=== PATIENT | female | born 1970 | race Two or more races ===

== ENCOUNTER 2016-09-09 10:12 | Emergency (ER) | payer OTHER ==
[~2016-09-09] VITALS: Ht 157.5 cm; Wt 68.0 kg
[2016-09-09 10:45] VITALS: BP 114/74
== END 2016-09-09 11:35 | disposition home or self-care (01) ==
LOC: ER 10:22
DX: S83.92XA Sprain of unspecified site of left knee, initial encounter (principal); F14.10 Cocaine abuse, uncomplicated; X58.XXXA Exposure to other specified factors, initial encounter; Y93.89 Activity, other specified; Y99.8 Other external cause status; Y92.89 Other specified places as the place of occurrence of the external cause
CPT/HCPCS: 73564

== ENCOUNTER 2020-09-29 18:15 | Inpatient (IN) | payer OTHER ==
[~2020-09-29] VITALS: Ht 157.5 cm; Wt 72.4 kg
[2020-09-29] MEDS ORDERED: IOHEXOL 300 MG/ML 100ML BOTTLE IJ ONE (19:17)
[2020-09-29 19:39] LABS: Basophils # (auto) 0 10 ^3/uL (0-0.2); Basophils % (auto) 0.2 % (0.0-2.0); Eosinophils # (auto) 0.1 10 ^3/uL (0-0.8); Hematocrit 38.8 % (36.0-46.0); Hemoglobin 13.1 g/dL (12.2-16.2); Lymphocytes # (auto) 0.8 10 ^3/uL (0.4-5.4); Lymphocytes % (auto) 7.7 % (10.0-50.0); Mean Corpuscular Hemoglobin 29.2 pg (28.0-32.0); Mean Corpuscular Hgb Conc. 33.7 g/dL (32.0-36.0); Mean Corpuscular Volume 86.4 fL (80.0-100.0); Monocytes # (auto) 0.9 10 ^3/uL (0-1.3); Monocytes % (auto) 8.1 % (0.0-12.0); Neutrophils # (auto) 9.1 10 ^3/uL (1.6-8.6); Red Blood Cells 4.49 10^6/uL (4.0-5.20); Red Cell Distribution Width 14.1 % (11.8-14.3)
[2020-09-29] MEDS ORDERED: SODIUM CHLORIDE 0.9% 1,000 ML IVB ONE (20:00)
[2020-09-29] MEDS ORDERED: MORPHINE SULFATE INJECTION 2 MG/ML SYRG IV ONE (20:00)
[2020-09-29] MEDS ORDERED: ONDANSETRON HCL 4 MG/2 ML VIAL IV ONE (20:00)
[2020-09-29 20:06] LABS: Calcium 8.7 mg/dL (8.5-10.1); Potassium 3.5 mmol/L (3.5-5.1)
[2020-09-29 20:11] LABS: Albumin 3.4 g/dL (3.4-5.0); BUN/Creatinine Ratio 19.4; Bilirubin, Total 0.5 mg/dL (0.2-1.0); Total Protein 7.9 g/dL (6.4-8.2)
[2020-09-29 20:35] LABS: Urine Bacteria NONE SEEN /hpf (None Seen); Urine Blood 1+ /uL (Negative); Urine Hyaline Cast FEW /lpf (0 - 2); Urine Mucus FEW (None Seen); Urine Specific Gravity 1.031 (1.001-1.035); Urine WBC 9 /hpf (0 - 5)
[2020-09-29 21:09] LABS: INR 1.18 (0.9-1.15); Partial Thromboplastin Time 26.2 sec (23.0-31.2)
[2020-09-30] MEDS ORDERED: ACETAMINOPHEN 325 MG TAB PO PRN (02:30)
[2020-09-30] MEDS ORDERED: MORPHINE SULFATE INJECTION 2 MG/ML SYRG IV PRN (02:30)
[2020-09-30] MEDS ORDERED: D5W/SOD CHLO 0.9% 1,000 ML IV SCH (02:30)
[2020-09-30] MEDS ORDERED: NITROGLYCERIN 0.4 MG SL TAB SL PRN (02:30)
[2020-09-30] MEDS ORDERED: DOCUSATE SOD 100 MG CAP PO PRN (02:30)
[2020-09-30 03:14] LABS: Basophils # (auto) 0 10 ^3/uL (0-0.2); Basophils % (auto) 0.4 % (0.0-2.0); Eosinophils # (auto) 0.1 10 ^3/uL (0-0.8); Eosinophils % (auto) 0.7 % (0.0-7.0); Hematocrit 35.7 % (36.0-46.0); Hemoglobin 11.9 g/dL (12.2-16.2); Lymphocytes # (auto) 0.7 10 ^3/uL (0.4-5.4); Lymphocytes % (auto) 7.3 % (10.0-50.0); Mean Corpuscular Hemoglobin 29.1 pg (28.0-32.0); Mean Corpuscular Hgb Conc. 33.3 g/dL (32.0-36.0); Mean Corpuscular Volume 87.4 fL (80.0-100.0); Monocytes # (auto) 0.9 10 ^3/uL (0-1.3); Monocytes % (auto) 9.3 % (0.0-12.0); Neutrophils # (auto) 7.9 10 ^3/uL (1.6-8.6); Neutrophils % (auto) 82.3 % (37.0-80.0); Red Blood Cells 4.08 10^6/uL (4.0-5.20); Red Cell Distribution Width 14.2 % (11.8-14.3); White Blood Cell 9.6 10^3/uL (4.4-10.8)
[2020-09-30] MEDS: metroNIDAZOLE 500MG/100ML 100 ML IV SCH ×3 (03:16→21:59)
[2020-09-30 03:34] LABS: BUN/Creatinine Ratio 16.9; Calcium 8.7 mg/dL (8.5-10.1); Potassium 3.4 mmol/L (3.5-5.1)
[2020-09-30 03:55] LABS: Bilirubin, Total 0.5 mg/dL (0.2-1.0); Total Protein 6.8 g/dL (6.4-8.2)
[2020-09-30] MEDS: ONDANSETRON HCL 4 MG/2 ML VIAL IV PRN (07:10)
[2020-09-30] MEDS: PANTOPRAZOLE 40 MG/10 ML VIAL INJ IV SCH (08:35)
[2020-09-30] MEDS: ZINC SULFATE 220mg CAP or TAB PO SCH (08:35)
[2020-09-30] MEDS: ASCORBIC ACID 500 MG TAB PO SCH ×2 (08:36→21:59)
[2020-09-30] MEDS: MULTIPLE VITAMIN TAB PO SCH (08:36)
[2020-09-30] MEDS ORDERED: ENOXAPARIN SOD 40 MG/0.4 ML SYRINGE SC SCH (10:00)
[2020-09-30] MEDS ORDERED: POTASSIUM CHLORIDE 20 MEQ, LIDOCAINE 1% (LOCAL ANESTH.) 2 ML in SODIUM CHL 0.9% 100 ML IV ONE (15:15)
[2020-09-30] MEDS: D5W/SOD CHL 0.45%/KCL 20MEQ 1,000 ML IV SCH (15:15)
[2020-09-30 16:00] VITALS: BP 116/73
[2020-09-30] MEDS ORDERED: PIPERACILLIN-TAZOB 3.375GM 100 ML IV ONE (17:45)
[2020-09-30] MEDS ORDERED: PIPERACILLIN-TAZOB 3.375GM 100 ML IV SCH (18:00)
[2020-09-30 22:00] VITALS: BP_SYST 102; BP_SYST 112; BP_DIAS 62; BP_DIAS 70
[2020-10-01] VITALS (15 sets, daily range): BP systolic 108–134; BP diastolic 60–88
[2020-10-01] MEDS: D5W/SOD CHL 0.45%/KCL 20MEQ 1,000 ML IV SCH ×3 (00:24→16:05)
[2020-10-01] MEDS: PIPERACILLIN-TAZOB 3.375GM 100 ML IV SCH ×5 (00:34→23:28)
[2020-10-01] MEDS: metroNIDAZOLE 500MG/100ML 100 ML IV SCH ×3 (05:07→21:05)
[2020-10-01] MEDS: MORPHINE SULFATE 4 MG/ML SYR/VIAL IV PRN (05:09)
[2020-10-01] MEDS: ONDANSETRON HCL 4 MG/2 ML VIAL IV PRN ×3 (05:10→16:23)
[2020-10-01 06:50] LABS: Basophils # (auto) 0 10 ^3/uL (0-0.2); Basophils % (auto) 0.2 % (0.0-2.0); Eosinophils # (auto) 0.1 10 ^3/uL (0-0.8); Eosinophils % (auto) 0.9 % (0.0-7.0); Hematocrit 33.3 % (36.0-46.0); Hemoglobin 11.3 g/dL (12.2-16.2); Lymphocytes # (auto) 0.4 10 ^3/uL (0.4-5.4); Lymphocytes % (auto) 4.9 % (10.0-50.0); Mean Corpuscular Hemoglobin 29.8 pg (28.0-32.0); Mean Corpuscular Volume 87.4 fL (80.0-100.0); Monocytes # (auto) 0.9 10 ^3/uL (0-1.3); Monocytes % (auto) 9.8 % (0.0-12.0); Neutrophils # (auto) 7.6 10 ^3/uL (1.6-8.6); Neutrophils % (auto) 84.2 % (37.0-80.0); Red Blood Cells 3.81 10^6/uL (4.0-5.20); Red Cell Distribution Width 13.8 % (11.8-14.3); White Blood Cell 9.1 10^3/uL (4.4-10.8)
[2020-10-01 07:05] LABS: Potassium 3.3 mmol/L (3.5-5.1)
[2020-10-01 07:23] LABS: Albumin 2.7 g/dL (3.4-5.0); BUN/Creatinine Ratio 11.8; Bilirubin, Total 0.4 mg/dL (0.2-1.0); Calcium 8.1 mg/dL (8.5-10.1); Total Protein 6.4 g/dL (6.4-8.2)
[2020-10-01 09:17] LABS: INR 1.32 (0.9-1.15); Partial Thromboplastin Time 27.5 sec (23.0-31.2)
[2020-10-01] MEDS: PANTOPRAZOLE 40 MG/10 ML VIAL INJ IV SCH (10:29)
[2020-10-01] MEDS: ASCORBIC ACID 500 MG TAB PO SCH ×2 (10:30→21:04)
[2020-10-01] MEDS: ZINC SULFATE 220mg CAP or TAB PO SCH (10:30)
[2020-10-01] MEDS: MULTIPLE VITAMIN TAB PO SCH (10:30)
[2020-10-01] MEDS ORDERED: POTASSIUM CHLORIDE 40 MEQ, LIDOCAINE 1% (LOCAL ANESTH.) 4 ML in SODIUM CHL 0.9% 250 ML IV ONE (11:00)
[2020-10-01] MEDS: HYDROcodone-ACET 5/325MG TAB PO PRN (11:06)
[2020-10-01 16:03] LABS: Hepatitis B Surface Antibody Negative
[2020-10-01 16:32] LABS: Hepatitis A Total Antibody Positive
[2020-10-01 16:40] LABS: Hepatitis B Core Total AB Negative; Hepatitis C Antibody Negative (Negative)
[2020-10-02] MEDS: ONDANSETRON HCL 4 MG/2 ML VIAL IV PRN ×3 (00:38→23:18)
[2020-10-02] MEDS: MORPHINE SULFATE 4 MG/ML SYR/VIAL IV PRN (00:38)
[2020-10-02] MEDS: D5W/SOD CHL 0.45%/KCL 20MEQ 1,000 ML IV SCH ×3 (02:37→17:15)
[2020-10-02] MEDS: PIPERACILLIN-TAZOB 3.375GM 100 ML IV SCH ×4 (05:37→23:31)
[2020-10-02] MEDS: metroNIDAZOLE 500MG/100ML 100 ML IV SCH ×3 (05:37→21:19)
[2020-10-02 05:54] VITALS: BP 115/70
[2020-10-02 06:14] LABS: Basophils # (auto) 0 10 ^3/uL (0-0.2); Basophils % (auto) 0.3 % (0.0-2.0); Eosinophils # (auto) 0.1 10 ^3/uL (0-0.8); Eosinophils % (auto) 0.7 % (0.0-7.0); Hematocrit 33.1 % (36.0-46.0); Hemoglobin 11.3 g/dL (12.2-16.2); Lymphocytes # (auto) 0.7 10 ^3/uL (0.4-5.4); Lymphocytes % (auto) 7.5 % (10.0-50.0); Mean Corpuscular Hemoglobin 29.5 pg (28.0-32.0); Mean Corpuscular Volume 86.7 fL (80.0-100.0); Monocytes # (auto) 0.8 10 ^3/uL (0-1.3); Monocytes % (auto) 9.4 % (0.0-12.0); Neutrophils # (auto) 7.2 10 ^3/uL (1.6-8.6); Neutrophils % (auto) 82.1 % (37.0-80.0); Nucleated Red Blood Cells % 0.1 %; Red Blood Cells 3.82 10^6/uL (4.0-5.20); White Blood Cell 8.8 10^3/uL (4.4-10.8)
[2020-10-02 06:37] LABS: Potassium 3.4 mmol/L (3.5-5.1)
[2020-10-02 06:45] LABS: Albumin 2.3 g/dL (3.4-5.0); BUN/Creatinine Ratio 10.6; Bilirubin, Total 0.3 mg/dL (0.2-1.0); Calcium 7.7 mg/dL (8.5-10.1); Total Protein 5.7 g/dL (6.4-8.2)
[2020-10-02 08:00] VITALS: BP 116/72
[2020-10-02] MEDS: PANTOPRAZOLE 40 MG/10 ML VIAL INJ IV SCH (09:00)
[2020-10-02] MEDS: ENOXAPARIN SOD 40 MG/0.4 ML SYRINGE SC SCH (09:12)
[2020-10-02] MEDS: HYDROcodone-ACET 5/325MG TAB PO PRN ×3 (09:13→23:18)
[2020-10-02] MEDS: MULTIPLE VITAMIN TAB PO SCH (09:18)
[2020-10-02] MEDS: ZINC SULFATE 220mg CAP or TAB PO SCH (09:18)
[2020-10-02] MEDS: ASCORBIC ACID 500 MG TAB PO SCH (09:18)
[2020-10-02] MEDS ORDERED: PROMETHAZINE HCL 25 MG/ML 1ML IV PRN (12:45)
[2020-10-02 16:00] VITALS: BP 118/82
[2020-10-02 22:19] VITALS: BP 113/73
[2020-10-03] MEDS: D5W/SOD CHL 0.45%/KCL 20MEQ 1,000 ML IV SCH ×3 (01:35→18:15)
[2020-10-03] MEDS: metroNIDAZOLE 500MG/100ML 100 ML IV SCH ×3 (05:02→21:06)
[2020-10-03 05:22] VITALS: BP 112/72
[2020-10-03] MEDS: PIPERACILLIN-TAZOB 3.375GM 100 ML IV SCH ×3 (06:08→18:30)
[2020-10-03] MEDS: ONDANSETRON HCL 4 MG/2 ML VIAL IV PRN ×3 (08:31→21:00)
[2020-10-03] MEDS: HYDROcodone-ACET 5/325MG TAB PO PRN ×2 (08:31→14:59)
[2020-10-03] MEDS: PANTOPRAZOLE 40 MG/10 ML VIAL INJ IV SCH (08:32)
[2020-10-03] MEDS: ENOXAPARIN SOD 40 MG/0.4 ML SYRINGE SC SCH (08:32)
[2020-10-03 09:00] VITALS: BP 114/71
[2020-10-03 13:00] VITALS: BP 104/70
[2020-10-03 16:53] VITALS: BP 110/71
[2020-10-03] MEDS: MORPHINE SULFATE 4 MG/ML SYR/VIAL IV PRN ×2 (21:00→22:37)
[2020-10-03 22:00] VITALS: BP 114/74
[2020-10-04] MEDS: PIPERACILLIN-TAZOB 3.375GM 100 ML IV SCH ×2 (00:14→06:22)
[2020-10-04] MEDS: ONDANSETRON HCL 4 MG/2 ML VIAL IV PRN ×4 (02:07→20:03)
[2020-10-04] MEDS: HYDROcodone-ACET 5/325MG TAB PO PRN ×3 (02:07→20:03)
[2020-10-04] MEDS: D5W/SOD CHL 0.45%/KCL 20MEQ 1,000 ML IV SCH ×3 (02:35→19:15)
[2020-10-04 05:00] VITALS: BP 112/71
[2020-10-04] MEDS: metroNIDAZOLE 500MG/100ML 100 ML IV SCH ×3 (06:22→22:30)
[2020-10-04 08:30] VITALS: BP 115/76
[2020-10-04 08:52] VITALS: BP 115/76
[2020-10-04] MEDS: ENOXAPARIN SOD 40 MG/0.4 ML SYRINGE SC SCH (09:41)
[2020-10-04] MEDS: PANTOPRAZOLE 40 MG/10 ML VIAL INJ IV SCH (09:41)
[2020-10-04] MEDS ORDERED: VANCOMYCIN PER PHARMACY 0 MG IV SCH (11:00)
[2020-10-04] MEDS ORDERED: VANCOMYCIN 1GM/250ML 250 ML IV ONE (11:00)
[2020-10-04 13:00] VITALS: BP 107/70
[2020-10-04] MEDS: MORPHINE SULFATE 4 MG/ML SYR/VIAL IV PRN (15:01)
[2020-10-04 16:41] VITALS: BP 112/72
[2020-10-04 22:00] VITALS: BP 112/76
[2020-10-04] MEDS: VANCOMYCIN 1GM/250ML 250 ML IV SCH (22:31)
[2020-10-05] MEDS: D5W/SOD CHL 0.45%/KCL 20MEQ 1,000 ML IV SCH ×2 (01:59→20:18)
[2020-10-05] MEDS: ONDANSETRON HCL 4 MG/2 ML VIAL IV PRN ×4 (02:04→22:22)
[2020-10-05] MEDS: HYDROcodone-ACET 5/325MG TAB PO PRN ×4 (02:04→22:31)
[2020-10-05 05:00] VITALS: BP 105/70
[2020-10-05] MEDS: metroNIDAZOLE 500MG/100ML 100 ML IV SCH ×3 (06:04→21:59)
[2020-10-05 07:10] LABS: Hepatitis B Surface Antigen Negative (Negative)
[2020-10-05 09:00] VITALS: BP 117/72
[2020-10-05] MEDS: ENOXAPARIN SOD 40 MG/0.4 ML SYRINGE SC SCH (09:33)
[2020-10-05] MEDS: PANTOPRAZOLE 40 MG/10 ML VIAL INJ IV SCH (09:33)
[2020-10-05] MEDS: VANCOMYCIN 1GM/250ML 250 ML IV SCH ×2 (11:00→23:30)
[2020-10-05] MEDS ORDERED: POTASSIUM CHLORIDE 20 MEQ, LIDOCAINE 1% (LOCAL ANESTH.) 2 ML in SODIUM CHL 0.9% 100 ML IV ONE (11:45)
[2020-10-05 13:00] VITALS: BP 116/80
[2020-10-05] MEDS ORDERED: IOHEXOL 300 MG/ML 100ML BOTTLE IJ ONE (14:40)
[2020-10-05] MEDS ORDERED: LIDOCAINE 2%HCL (LOCAL ANESTH.) INJ 20ML MDV ONE (14:40)
[2020-10-05] MEDS ORDERED: IOHEXOL 350 MG/ML 100ML IJ ONE (15:10)
[2020-10-05 17:00] VITALS: BP 119/79
[2020-10-05 20:00] VITALS: BP 122/82
[2020-10-05 22:01] VITALS: BP 122/82
[2020-10-06 04:52] VITALS: BP 119/83
[2020-10-06] MEDS: D5W/SOD CHL 0.45%/KCL 20MEQ 1,000 ML IV SCH ×3 (04:58→15:59)
[2020-10-06] MEDS: HYDROcodone-ACET 5/325MG TAB PO PRN ×2 (05:32→16:04)
[2020-10-06] MEDS: ONDANSETRON HCL 4 MG/2 ML VIAL IV PRN ×4 (05:32→21:19)
[2020-10-06 05:52] LABS: Basophils # (auto) 0 10 ^3/uL (0-0.2); Basophils % (auto) 0.3 % (0.0-2.0); Eosinophils # (auto) 0.2 10 ^3/uL (0-0.8); Eosinophils % (auto) 1.8 % (0.0-7.0); Hemoglobin 13.7 g/dL (12.2-16.2); Lymphocytes # (auto) 0.7 10 ^3/uL (0.4-5.4); Mean Corpuscular Hemoglobin 29.2 pg (28.0-32.0); Mean Corpuscular Hgb Conc. 33.3 g/dL (32.0-36.0); Mean Corpuscular Volume 87.5 fL (80.0-100.0); Monocytes # (auto) 1.1 10 ^3/uL (0-1.3); Neutrophils # (auto) 8.6 10 ^3/uL (1.6-8.6); Neutrophils % (auto) 80.9 % (37.0-80.0); Nucleated Red Blood Cells % 0.1 %; Red Blood Cells 4.69 10^6/uL (4.0-5.20); Red Cell Distribution Width 14.6 % (11.8-14.3); White Blood Cell 10.6 10^3/uL (4.4-10.8)
[2020-10-06 06:14] LABS: Albumin 2.4 g/dL (3.4-5.0); Potassium 3.4 mmol/L (3.5-5.1)
[2020-10-06 06:17] LABS: BUN/Creatinine Ratio 8.4; Bilirubin, Total 0.3 mg/dL (0.2-1.0); Total Protein 6.2 g/dL (6.4-8.2)
[2020-10-06] MEDS: metroNIDAZOLE 500MG/100ML 100 ML IV SCH ×3 (06:21→21:44)
[2020-10-06 09:00] VITALS: BP 115/80
[2020-10-06] MEDS: MORPHINE SULFATE 4 MG/ML SYR/VIAL IV PRN ×2 (10:15→21:19)
[2020-10-06] MEDS: ENOXAPARIN SOD 40 MG/0.4 ML SYRINGE SC SCH (10:15)
[2020-10-06] MEDS: PANTOPRAZOLE 40 MG/10 ML VIAL INJ IV SCH (10:15)
[2020-10-06] MEDS: VANCOMYCIN 1GM/250ML 250 ML IV SCH ×2 (11:27→23:08)
[2020-10-06 13:00] VITALS: BP 122/85
[2020-10-06] MEDS ORDERED: POTASSIUM CHLORIDE 40 MEQ, LIDOCAINE 1% (LOCAL ANESTH.) 4 ML in SODIUM CHL 0.9% 250 ML IV ONE (13:00)
[2020-10-06 15:45] LABS: INR 2.13 (0.9-1.15)
[2020-10-06] MEDS ORDERED: PHYTONADIONE(VitK) ORAL Susp 10mg/10ml(1mg/ml) PO ONE (16:30)
[2020-10-06 16:34] VITALS: BP 140/98
[2020-10-06 21:53] VITALS: BP 144/83
[2020-10-07] MEDS: ONDANSETRON HCL 4 MG/2 ML VIAL IV PRN ×4 (02:12→19:27)
[2020-10-07] MEDS: HYDROcodone-ACET 5/325MG TAB PO PRN ×2 (02:12→09:49)
[2020-10-07 05:00] VITALS: BP 117/74
[2020-10-07] MEDS: D5W/SOD CHL 0.45%/KCL 20MEQ 1,000 ML IV SCH ×3 (05:36→22:21)
[2020-10-07] MEDS: metroNIDAZOLE 500MG/100ML 100 ML IV SCH ×3 (05:38→21:39)
[2020-10-07 06:17] LABS: Basophils # (auto) 0 10 ^3/uL (0-0.2); Basophils % (auto) 0.2 % (0.0-2.0); Eosinophils # (auto) 0.1 10 ^3/uL (0-0.8); Eosinophils % (auto) 1.2 % (0.0-7.0); Hematocrit 34.8 % (36.0-46.0); Hemoglobin 11.8 g/dL (12.2-16.2); Lymphocytes # (auto) 0.5 10 ^3/uL (0.4-5.4); Lymphocytes % (auto) 5.4 % (10.0-50.0); Mean Corpuscular Hemoglobin 29.1 pg (28.0-32.0); Mean Corpuscular Hgb Conc. 33.8 g/dL (32.0-36.0); Mean Corpuscular Volume 86.1 fL (80.0-100.0); Monocytes % (auto) 10.5 % (0.0-12.0); Neutrophils # (auto) 7.9 10 ^3/uL (1.6-8.6); Neutrophils % (auto) 82.7 % (37.0-80.0); Red Blood Cells 4.05 10^6/uL (4.0-5.20); Red Cell Distribution Width 14.4 % (11.8-14.3); White Blood Cell 9.6 10^3/uL (4.4-10.8)
[2020-10-07 06:29] LABS: INR 1.25 (0.9-1.15)
[2020-10-07 06:41] LABS: Potassium 3.5 mmol/L (3.5-5.1)
[2020-10-07 07:00] LABS: BUN/Creatinine Ratio 5.6; Calcium 7.3 mg/dL (8.5-10.1)
[2020-10-07 09:00] VITALS: BP 103/68
[2020-10-07] MEDS: ENOXAPARIN SOD 40 MG/0.4 ML SYRINGE SC SCH (09:33)
[2020-10-07] MEDS: PANTOPRAZOLE 40 MG/10 ML VIAL INJ IV SCH (09:33)
[2020-10-07] MEDS: VANCOMYCIN 1GM/250ML 250 ML IV SCH ×2 (11:51→23:55)
[2020-10-07] MEDS: MORPHINE SULFATE 4 MG/ML SYR/VIAL IV PRN ×2 (14:11→19:28)
[2020-10-07 14:36] LABS: INR 1.16 (0.9-1.15); Partial Thromboplastin Time 31.4 sec (23.0-31.2)
[2020-10-07 22:00] VITALS: BP 109/70
[2020-10-08] MEDS: ONDANSETRON HCL 4 MG/2 ML VIAL IV PRN ×5 (00:24→23:11)
[2020-10-08] MEDS: HYDROcodone-ACET 5/325MG TAB PO PRN ×6 (00:26→23:12)
[2020-10-08 05:00] VITALS: BP 109/73
[2020-10-08] MEDS: metroNIDAZOLE 500MG/100ML 100 ML IV SCH ×3 (06:12→22:15)
[2020-10-08 06:18] LABS: Basophils # (auto) 0 10 ^3/uL (0-0.2); Basophils % (auto) 0.3 % (0.0-2.0); Eosinophils # (auto) 0.1 10 ^3/uL (0-0.8); Eosinophils % (auto) 1.4 % (0.0-7.0); Hemoglobin 11.9 g/dL (12.2-16.2); Lymphocytes # (auto) 0.6 10 ^3/uL (0.4-5.4); Lymphocytes % (auto) 6.4 % (10.0-50.0); Mean Corpuscular Hemoglobin 29.6 pg (28.0-32.0); Mean Corpuscular Hgb Conc. 34.1 g/dL (32.0-36.0); Mean Corpuscular Volume 86.6 fL (80.0-100.0); Monocytes % (auto) 11.6 % (0.0-12.0); Neutrophils # (auto) 7.2 10 ^3/uL (1.6-8.6); Neutrophils % (auto) 80.3 % (37.0-80.0); Red Blood Cells 4.04 10^6/uL (4.0-5.20); Red Cell Distribution Width 14.6 % (11.8-14.3)
[2020-10-08 06:35] LABS: Albumin 1.7 g/dL (3.4-5.0); Calcium 7.5 mg/dL (8.5-10.1); Potassium 4.3 mmol/L (3.5-5.1)
[2020-10-08 06:40] LABS: BUN/Creatinine Ratio 5.1; Bilirubin, Total 0.3 mg/dL (0.2-1.0); Total Protein 4.7 g/dL (6.4-8.2)
[2020-10-08] MEDS: D5W/SOD CHL 0.45%/KCL 20MEQ 1,000 ML IV SCH ×3 (06:45→23:32)
[2020-10-08 09:00] VITALS: BP 112/72
[2020-10-08] MEDS: PANTOPRAZOLE 40 MG/10 ML VIAL INJ IV SCH (10:23)
[2020-10-08] MEDS: ENOXAPARIN SOD 40 MG/0.4 ML SYRINGE SC SCH (10:23)
[2020-10-08] MEDS: VANCOMYCIN 1GM/250ML 250 ML IV SCH ×2 (11:33→22:19)
[2020-10-08 13:00] VITALS: BP 110/72
[2020-10-08] MEDS ORDERED: SODIUM CHL 0.9% IV ONE (15:30)
[2020-10-08] MEDS ORDERED: DEXAMETHASONE IV ONE (15:30)
[2020-10-08] MEDS ORDERED: diphenhdrAMINE HCL 25 MG CAP PO ONE (15:30)
[2020-10-08] MEDS ORDERED: ONDANSETRON ODT 4 MG TAB PO ONE (15:30)
[2020-10-08] MEDS ORDERED: FAMOTIDINE 20 MG TAB PO ONE (15:30)
[2020-10-08] MEDS ORDERED: CARBOPLATIN IV ONE (16:00)
[2020-10-08] MEDS ORDERED: D5W 5% IV ONE (16:00)
[2020-10-08 17:00] VITALS: BP 115/80
[2020-10-08] MEDS ORDERED: [UNRECOGNIZED DRUG - OTHER] IV ONE (17:00)
[2020-10-08 20:00] VITALS: BP 113/80
[2020-10-08] MEDS ORDERED: ONDANSETRON ODT 4 MG TAB PO PRN (21:00)
[2020-10-08] MEDS ORDERED: ONDANSETRON HCL 16 MG in SODIUM CHL 0.9% 50 ML IV PRN (21:00)
[2020-10-08 22:00] VITALS: BP_SYST 113; BP_SYST 159; BP_DIAS 40; BP_DIAS 80
[2020-10-08] MEDS ORDERED: PROCHLORPERAZINE MALEATE 10 MG TAB PO SCH (22:00)
[2020-10-09] VITALS (14 sets, daily range): BP systolic 110–145; BP diastolic 64–93
[2020-10-09] MEDS: ONDANSETRON HCL 4 MG/2 ML VIAL IV PRN ×3 (03:17→18:24)
[2020-10-09] MEDS: MORPHINE SULFATE 4 MG/ML SYR/VIAL IV PRN ×3 (03:20→18:24)
[2020-10-09] MEDS: metroNIDAZOLE 500MG/100ML 100 ML IV SCH ×3 (05:56→22:40)
[2020-10-09 06:07] LABS: Basophils # (auto) 0 10 ^3/uL (0-0.2); Basophils % (auto) 0.3 % (0.0-2.0); Eosinophils # (auto) 0.2 10 ^3/uL (0-0.8); Eosinophils % (auto) 1.6 % (0.0-7.0); Hemoglobin 12.5 g/dL (12.2-16.2); Lymphocytes # (auto) 0.4 10 ^3/uL (0.4-5.4); Lymphocytes % (auto) 4.6 % (10.0-50.0); Mean Corpuscular Hemoglobin 29.5 pg (28.0-32.0); Monocytes # (auto) 1.1 10 ^3/uL (0-1.3); Monocytes % (auto) 11.2 % (0.0-12.0); Neutrophils # (auto) 7.9 10 ^3/uL (1.6-8.6); Neutrophils % (auto) 82.3 % (37.0-80.0); Red Blood Cells 4.25 10^6/uL (4.0-5.20); Red Cell Distribution Width 14.5 % (11.8-14.3); White Blood Cell 9.6 10^3/uL (4.4-10.8)
[2020-10-09 06:34] LABS: Potassium 3.9 mmol/L (3.5-5.1)
[2020-10-09 06:41] LABS: Albumin 1.7 g/dL (3.4-5.0); BUN/Creatinine Ratio 4.3; Calcium 7.6 mg/dL (8.5-10.1)
[2020-10-09 06:44] LABS: Bilirubin, Total 0.2 mg/dL (0.2-1.0); Total Protein 4.7 g/dL (6.4-8.2)
[2020-10-09] MEDS ORDERED: D5W 5% IV ONE ×3 (07:30→17:00)
[2020-10-09] MEDS ORDERED: PACLITAXEL IV ONE ×2 (07:30→17:00)
[2020-10-09] MEDS: ENOXAPARIN SOD 40 MG/0.4 ML SYRINGE SC SCH (07:38)
[2020-10-09] MEDS ORDERED: fentaNYL CITRATE 100 MCG/2 ML VL IV ONE (09:15)
[2020-10-09] MEDS ORDERED: MIDAZOLAM HCL 2MG/2ML 2ml VIAL (1mg/ml) IV ONE (09:15)
[2020-10-09] MEDS ORDERED: DexAMETHasone 4 MG TAB PO SCH (10:00)
[2020-10-09] MEDS: D5W/SOD CHL 0.45%/KCL 20MEQ 1,000 ML IV SCH ×2 (10:10→15:55)
[2020-10-09] MEDS: PANTOPRAZOLE 40 MG/10 ML VIAL INJ IV SCH (10:11)
[2020-10-09] MEDS: HYDROcodone-ACET 5/325MG TAB PO PRN ×2 (12:01→22:44)
[2020-10-09] MEDS: VANCOMYCIN 1GM/250ML 250 ML IV SCH ×2 (12:01→23:59)
[2020-10-09] MEDS ORDERED: LIDOCAINE 2%HCL (LOCAL ANESTH.) INJ 20ML MDV ONE ×2 (12:45→12:50)
[2020-10-09] MEDS ORDERED: ONDANSETRON ODT 4 MG TAB PO ONE ×3 (15:30→20:59)
[2020-10-09] MEDS ORDERED: DEXAMETHASONE IV ONE (15:30)
[2020-10-09] MEDS ORDERED: FAMOTIDINE 20 MG TAB PO ONE (15:30)
[2020-10-09] MEDS ORDERED: SODIUM CHL 0.9% IV ONE (15:30)
[2020-10-09] MEDS ORDERED: diphenhdrAMINE HCL 25 MG CAP PO ONE (15:30)
[2020-10-09] MEDS ORDERED: CARBOPLATIN IV ONE (16:00)
[2020-10-10] MEDS: PROCHLORPERAZINE MALEATE 10 MG TAB PO SCH ×5 (00:43→23:12)
[2020-10-10 05:12] VITALS: BP 144/85
[2020-10-10] MEDS: metroNIDAZOLE 500MG/100ML 100 ML IV SCH ×3 (05:34→22:20)
[2020-10-10] MEDS: HYDROcodone-ACET 5/325MG TAB PO PRN ×3 (07:56→22:54)
[2020-10-10 08:00] VITALS: BP 137/85
[2020-10-10] MEDS: D5W/SOD CHL 0.45%/KCL 20MEQ 1,000 ML IV SCH ×3 (09:23→16:58)
[2020-10-10] MEDS: DexAMETHasone 4 MG TAB PO SCH (09:24)
[2020-10-10] MEDS: PANTOPRAZOLE 40 MG/10 ML VIAL INJ IV SCH (09:24)
[2020-10-10] MEDS: ENOXAPARIN SOD 40 MG/0.4 ML SYRINGE SC SCH (09:24)
[2020-10-10 12:00] VITALS: BP 120/72
[2020-10-10] MEDS: VANCOMYCIN 1GM/250ML 250 ML IV SCH ×2 (12:37→23:35)
[2020-10-10 16:00] VITALS: BP 137/77
[2020-10-10 22:00] VITALS: BP 139/74
[2020-10-11] MEDS: D5W/SOD CHL 0.45%/KCL 20MEQ 1,000 ML IV SCH ×2 (01:15→10:14)
[2020-10-11] MEDS: ONDANSETRON HCL 4 MG/2 ML VIAL IV PRN (03:35)
[2020-10-11] MEDS: MORPHINE SULFATE 4 MG/ML SYR/VIAL IV PRN (03:35)
[2020-10-11 05:00] VITALS: BP 141/80
[2020-10-11] MEDS: metroNIDAZOLE 500MG/100ML 100 ML IV SCH ×3 (05:35→22:00)
[2020-10-11] MEDS: PROCHLORPERAZINE MALEATE 10 MG TAB PO SCH ×4 (05:35→22:00)
[2020-10-11 08:00] VITALS: BP 134/74
[2020-10-11] MEDS: PANTOPRAZOLE 40 MG/10 ML VIAL INJ IV SCH (10:14)
[2020-10-11] MEDS: DexAMETHasone 4 MG TAB PO SCH (10:14)
[2020-10-11] MEDS: ENOXAPARIN SOD 40 MG/0.4 ML SYRINGE SC SCH (10:15)
[2020-10-11] MEDS: VANCOMYCIN 1GM/250ML 250 ML IV SCH ×2 (12:11→23:07)
[2020-10-11 13:00] VITALS: BP 144/76
[2020-10-11] MEDS: HYDROcodone-ACET 5/325MG TAB PO PRN ×2 (15:27→20:00)
[2020-10-11 17:00] VITALS: BP 138/77
[2020-10-11 22:00] VITALS: BP 151/75
[2020-10-12] MEDS: HYDROcodone-ACET 5/325MG TAB PO PRN ×5 (01:03→22:29)
[2020-10-12] MEDS ORDERED: TEMAZEPAM 15 MG CAP PO ONE (01:15)
[2020-10-12 05:00] VITALS: BP 141/75
[2020-10-12] MEDS: metroNIDAZOLE 500MG/100ML 100 ML IV SCH ×2 (06:00→13:59)
[2020-10-12] MEDS: PROCHLORPERAZINE MALEATE 10 MG TAB PO SCH ×2 (06:00→11:38)
[2020-10-12 09:00] VITALS: BP 133/75
[2020-10-12] MEDS: ENOXAPARIN SOD 40 MG/0.4 ML SYRINGE SC SCH (10:08)
[2020-10-12] MEDS: PANTOPRAZOLE 40 MG/10 ML VIAL INJ IV SCH (10:08)
[2020-10-12] MEDS: VANCOMYCIN 1GM/250ML 250 ML IV SCH (11:38)
[2020-10-12 13:00] VITALS: BP 132/67
[2020-10-12 17:00] VITALS: BP 146/76
[2020-10-12 21:48] VITALS: BP 116/76
[2020-10-12 22:47] VITALS: BP 116/76
== END 2020-10-12 23:00 | disposition home health service (06) | DRG 754 ==
LOC: ER 18:17 → TELE 09-30 02:17 → TELE-CENTR 09-30 13:58 → TELE-EAST 10-03 21:15
PROVIDERS: ADMIT Nurse Practitioner Family; ATTEND Internal Medicine
PROC: 0W9G3ZZ Drainage of Peritoneal Cavity, Percutaneous Approach (ICD-10-PCS; principal; 2020-10-01)
PROC: 05HD33Z Insertion of Infusion Device into Right Cephalic Vein, Percutaneous Approach (ICD-10-PCS; 2020-10-05)
PROC: B54MZZA Ultrasonography of Right Upper Extremity Veins, Guidance (ICD-10-PCS; 2020-10-05)
PROC: 0W9G3ZZ Drainage of Peritoneal Cavity, Percutaneous Approach (ICD-10-PCS; 2020-10-06)
PROC: 0W9G30Z Drainage of Peritoneal Cavity with Drainage Device, Percutaneous Approach (ICD-10-PCS; 2020-10-09)
PROC: 05HY33Z Insertion of Infusion Device into Upper Vein, Percutaneous Approach (ICD-10-PCS; 2020-10-09)
PROC: 3E03305 Introduction of Other Antineoplastic into Peripheral Vein, Percutaneous Approach (ICD-10-PCS; 2020-10-09)
DX: C56.9 Malignant neoplasm of unspecified ovary (principal); K65.9 Peritonitis, unspecified; C78.6 Secondary malignant neoplasm of retroperitoneum and peritoneum; R18.8 Other ascites; E44.0 Moderate protein-calorie malnutrition; D68.9 Coagulation defect, unspecified; D72.829 Elevated white blood cell count, unspecified; E87.6 Hypokalemia; D63.8 Anemia in other chronic diseases classified elsewhere; Z20.822 Contact with and (suspected) exposure to COVID-19; Z90.49 Acquired absence of other specified parts of digestive tract; Z98.51 Tubal ligation status; Z82.49 Family history of ischemic heart disease and other diseases of the circulatory system; Z83.3 Family history of diabetes mellitus; Z68.29 Body mass index [BMI] 29.0-29.9, adult; B95.62 Methicillin resistant Staphylococcus aureus infection as the cause of diseases classified elsewhere; Z51.11 Encounter for antineoplastic chemotherapy
CPT/HCPCS: 10022; 36415; 36569; 49083; 71045; 71260; 74018; 74177; 76700; 76705; 76856; 76942; 80048; 80053; 80202; 81001; 82105; 82150; 82378; 82565; 83605; 83615; 83690; 83735; 84443; 85025; 85610; 85730; 86300; 86301; 86304; 86704; 86706; 86708; 86803; 87040; 87045; 87077; 87186; 87205; 87340; 87426; 87427; 87493; 96361; 96372; 96374; 96375; 96376; C9113; G0378; J1100; J2001; J2250; J2405; J2543; J3490; J7060; J9045; J9267; Q0162; Q0164

== ENCOUNTER 2020-10-25 11:14 | Emergency (ER) | payer OTHER ==
[~2020-10-25] VITALS: Ht 154.9 cm; Wt 63.5 kg
[2020-10-25 11:31] VITALS: BP 121/84
== END 2020-10-25 11:38 | disposition home or self-care (01) ==
LOC: ER 11:14
DX: T82.898A Other specified complication of vascular prosthetic devices, implants and grafts, initial encounter (principal); Z90.49 Acquired absence of other specified parts of digestive tract; Z98.51 Tubal ligation status

== ENCOUNTER 2020-12-17 22:11 | Emergency (ER) | payer OTHER ==
[~2020-12-17] VITALS: Ht 154.9 cm; Wt 61.2 kg
[2020-12-17] MEDS ORDERED: SODIUM CHLORIDE 0.9% 1,000 ML IVB ONE (22:30)
[2020-12-17 22:51] LABS: Basophils # (auto) 0 10 ^3/uL (0-0.2); Basophils % (auto) 0.3 % (0.0-2.0); Eosinophils # (auto) 0 10 ^3/uL (0-0.8); Eosinophils % (auto) 0.2 % (0.0-7.0); Hematocrit 35.2 % (36.0-46.0); Hemoglobin 11.9 g/dL (12.2-16.2); Lymphocytes # (auto) 1.4 10 ^3/uL (0.4-5.4); Mean Corpuscular Hemoglobin 30.3 pg (28.0-32.0); Mean Corpuscular Hgb Conc. 33.7 g/dL (32.0-36.0); Monocytes # (auto) 1.6 10 ^3/uL (0-1.3); Monocytes % (auto) 8.7 % (0.0-12.0); Neutrophils # (auto) 15.1 10 ^3/uL (1.6-8.6); Neutrophils % (auto) 82.8 % (37.0-80.0); Nucleated Red Blood Cells % 0.1 %; Platelet Count (auto) 369 10^3/uL (140-450); Red Blood Cells 3.91 10^6/uL (4.0-5.20); White Blood Cell 18.2 10^3/uL (4.4-10.8)
[2020-12-17 22:52] LABS: Red Cell Distribution Width 20.4 % (11.8-14.3)
[2020-12-17 23:08] LABS: Albumin 1.6 g/dL (3.4-5.0); Anion Gap 15 (5-15); Blood Urea Nitrogen 20 mg/dL (7-18); Calcium 8.2 mg/dL (8.5-10.1); Carbon Dioxide 24 mmol/L (21-32); Chloride 92 mmol/L (98-107); Glucose 119 mg/dL (74-106); Magnesium 2.6 mg/dL (1.6-2.6); Potassium 4.5 mmol/L (3.5-5.1); Sodium 131 mmol/L (136-145)
[2020-12-17 23:14] LABS: INR 1.13 (0.9-1.15); Partial Thromboplastin Time 40.3 sec (23.0-31.2)
[2020-12-17 23:15] LABS: Alanine Aminotransferase 13 U/L (13-56); Alkaline Phosphatase 125 U/L (45-117); Aspartate Aminotransferase 28 U/L (15-37); BUN/Creatinine Ratio 26.3; Bilirubin, Total 0.3 mg/dL (0.2-1.0); GFR African American 103 mL/min; GFR Non-African American 85 mL/min; Total Protein 5.3 g/dL (6.4-8.2)
[2020-12-18 00:11] LABS: Urine Amorphous Crystal FEW /hpf (None Seen); Urine Bacteria FEW /hpf (None Seen); Urine Blood Negative /uL (Negative); Urine Mucus FEW (None Seen); Urine Specific Gravity 1.021 (1.001-1.035); Urine WBC 2 /hpf (0 - 5)
[2020-12-18 02:05] VITALS: BP 97/67
== END 2020-12-18 02:23 | disposition home or self-care (01) ==
LOC: ER 22:13
DX: E86.0 Dehydration (principal); C78.6 Secondary malignant neoplasm of retroperitoneum and peritoneum; Z20.822 Contact with and (suspected) exposure to COVID-19
CPT/HCPCS: 36415; 71045; 80053; 81001; 83735; 84484; 85025; 85610; 85730; 87426; 93005; 96360; 99285; J7030

== ENCOUNTER 2020-12-26 21:19 | Emergency (ER) | payer OTHER ==
[~2020-12-26] VITALS: Ht 154.9 cm; Wt 54.4 kg
[2020-12-26] MEDS ORDERED: IOHEXOL 300 MG/ML 100ML BOTTLE IJ ONE (22:40)
[2020-12-26] MEDS ORDERED: ONDANSETRON HCL 4 MG/2 ML VIAL IV ONE (23:00)
[2020-12-26 23:01] LABS: Basophils # (auto) 0 10 ^3/uL (0-0.2); Basophils % (auto) 0.1 % (0.0-2.0); Eosinophils # (auto) 0 10 ^3/uL (0-0.8); Eosinophils % (auto) 0.1 % (0.0-7.0); Hemoglobin 13.3 g/dL (12.2-16.2); Lymphocytes # (auto) 0.4 10 ^3/uL (0.4-5.4); Lymphocytes % (auto) 4.4 % (10.0-50.0); Mean Corpuscular Hemoglobin 30.8 pg (28.0-32.0); Mean Corpuscular Volume 90.5 fL (80.0-100.0); Monocytes # (auto) 0.4 10 ^3/uL (0-1.3); Monocytes % (auto) 4.5 % (0.0-12.0); Neutrophils # (auto) 8.2 10 ^3/uL (1.6-8.6); Neutrophils % (auto) 90.9 % (37.0-80.0); Nucleated Red Blood Cells % 0.2 %; Red Blood Cells 4.31 10^6/uL (4.0-5.20); Red Cell Distribution Width 19.8 % (11.8-14.3)
[2020-12-26 23:24] LABS: Albumin 1.5 g/dL (3.4-5.0); Calcium 7.7 mg/dL (8.5-10.1)
[2020-12-26 23:27] LABS: Bilirubin, Total 0.3 mg/dL (0.2-1.0); Lactic Acid w/Reflex 2.2 mmol/L (0.4-2.0); Total Protein 5.3 g/dL (6.4-8.2)
[2020-12-26 23:36] LABS: BUN/Creatinine Ratio 18.1
[2020-12-26] MEDS ORDERED: MORPHINE SULFATE INJECTION 2 MG/ML SYRG IV ONE (23:45)
[2020-12-27] MEDS ORDERED: SODIUM CHLORIDE 0.9% 1,000 ML IV ONE
[2020-12-27 02:00] VITALS: BP 92/67
== END 2020-12-27 03:41 | disposition home or self-care (01) ==
LOC: ER 21:24
DX: R10.30 Lower abdominal pain, unspecified (principal); R07.89 Other chest pain; Z90.49 Acquired absence of other specified parts of digestive tract; Z98.51 Tubal ligation status
CPT/HCPCS: 36415; 74177; 80053; 83605; 83690; 83735; 85025; 93005; 96361; 96374; 96375; 99285; J2270; J2405; J7030; Q9967